=== PATIENT | female | born 1990 | race Caucasian/White ===

== ENCOUNTER 2016-04-03 14:45 | Emergency (ER) ==
[2016-04-03] MEDS ORDERED: TYLENOL PO ONE (15:10)
[2016-04-03 15:29] LABS: MANUAL DIFF NEEDED? NO
--- NOTE | 2016-04-03 15:29 | PROVIDER DOCUMENTATION ---
Addendum entered and electronically signed by Alessandra Jj PA 04/04/16 09 :02: Additional Progress - ADDITIONAL PLAN OF CARE/RESULTS Additional Progress/Plan/Lab Results: Vital Signs Temp Pulse Pulse Pulse Pulse Resp BP 04/03/16 17:34 98.4 F 98 H 18 114/073 04/03/16 14:56 102 H 117 H 88 04/03/16 14:51 98.7 F 105 H 18 107/071 BP BP BP Pulse Ox 04/03/16 17:34 99 04/03/16 14:56 098/070 108/075 106/072 04/03/16 14:51 100 Penicillins Allergy (Mild, Verified 04/03/16 14:55) HIVES Pnv with Ca,No.72/Iron/FA [Pnv Plus Multivit Tab] 1 each PO DAILY #30 tablet 02/21/16 Hydrocodone/APAP 7.5 mg/325 mg [[place]-7.5] 1 each PO Q6H PRN PRN #14 tablet 11/10 Laboratory 04/03/16 04/03/16 04/03/16 15:18 15:18 15:18 WBC 6.55 RBC 3.99 L Hgb 12.2 Hct 35.5 L MCV 89.0 MCH 30.6 MCHC 34.4 RDW Std Deviation 11.9 Plt Count 153 MPV 11.6 H Immature Gran % (Auto) 0.2 Neut % (Auto) 61.8 Lymph % (Auto) 26.7 [place] % (Auto) 7.2 Eos % (Auto) 3.5 Baso % (Auto) 0.6 Immature Gran # (Auto) 0.01 Neut # (Auto) 4.05 Lymph # (Auto) 1.75 [place] # (Auto) 0.47 Eos # (Auto) 0.23 Baso # (Auto) 0.04 Sodium Potassium Chloride Carbon Dioxide Anion Gap BUN Creatinine Estimated GFR/1.73 m2 BUN/Creatinine Ratio Glucose Calculated Osmolality Calcium Total Bilirubin AST ALT Alkaline Phosphatase Total Protein Albumin Globulin Albumin/Globulin Ratio Ser , Semi-Qnt 439.9 ABO/Rh AB POSITIVE RhIG Candidate? NO 04/03/16 15:18 WBC RBC Hgb Hct MCV MCH MCHC RDW Std Deviation Plt Count MPV Immature Gran % (Auto) Neut % (Auto) Lymph % (Auto) [place] % (Auto) Eos % (Auto) Baso % (Auto) Immature Gran # (Auto) Neut # (Auto) Lymph # (Auto) [place] # (Auto) Eos # (Auto) Baso # (Auto) Sodium 137 Potassium 3.6 Chloride 103 Carbon Dioxide 24 L Anion Gap 10 BUN 4 L Creatinine 0.5 Estimated GFR/1.73 m2 > 60 BUN/Creatinine Ratio 8 Glucose 92 Calculated Osmolality 270 Calcium 8.8 Total Bilirubin 0.20 AST 18 ALT 17 Alkaline Phosphatase 90 Total Protein 6.8 Albumin 4.1 Globulin 3.0 Albumin/Globulin Ratio 2.0 Ser , Semi-Qnt ABO/Rh RhIG Candidate? Orders Category Date Time Status US PELVIC NON-PRECISION AGRICULTURE TECHNICIAN COMPLETE [US] Stat Exams 04/03/16 15:10 Draft CBC WITH ELECTRONIC DIFF [HEME] Stat Lab 04/03/16 15:18 Completed COMPREHENSIVE METABOLIC PANEL [CHEM] Stat Lab 04/03/16 15:18 Completed QUANT TEST Stat Lab 04/03/16 15:18 Completed RHOGAM WORKUP [BBK] Stat Lab 04/03/16 15:18 Completed Acetaminophen [Tylenol] Med 04/03/16 15:10 Discontinued 1,000 mg PO NOW ONE Hydrocodone/APAP 10 mg/325 mg [[place]-10] Med 04/03/16 16:50 Discontinued 1 each PO NOW ONE Original Note: HPI-Female /OB/Breast - General Source: reports: patient - History of Present Illness-Female /OB Does patient report she is ?: No Location of complaint: reports: suprapubic Radiation: reports: none Quality of Pain: reports: aching, cramping Severity in ED: reports: moderate Onset/Duration: reports: gradual, 5 days ago Timing: reports: still present, intermittent Context/Activities at Onset: reports: none Vaginal Bleeding Amount: Large/Heavy Related Symptoms: reports: pelvic pain, vaginal bleeding, abdominal pain Sexual intercourse history: reports: Greater Than 2 Months Ago, Single Partner Contraception: reports: none Modifying Factors: improves with: nothing Associated Symptoms: denies: back/neck pain, dizziness, fatigue, fever/chills, nausea, vomiting, weakness Similar Symptoms Previously?: No Recently seen or treated by another doctor?: No - LMP/ History Menstrual Status: currently : 2 Para: 0 : 1 HCG confirmation: home preg test Weeks/Months: 10 <Jono Sinclair - Last Filed: 04/03/16 15:25> <Alessandra Jj - Last Filed: 04/03/16 17:13> - General Chief Complaint: Female Stated Complaint: MISCARRIAGE FOR 5 DAYS Time Seen by Provider: 04/03/16 15:04 Allergies/Adverse Reactions: Patient Allergies Allergy/AdvReac Type Severity Reaction Status Date / Time Penicillins Allergy Mild HIVES Verified 04/03/16 14:55 - History of Present Illness-Female /OB Nature of Presenting Problem: pt is a 25 y/o f that presents with vaginal bleeding and lower abdominal cramping x 5days. she is a AB 1. she reports large amount of copious blood with clots. this morning the bed was covered in blood (Jono Sinclair) Review of Systems - Adult - REVIEW OF SYSTEMS - ADULT Constitutional: denies: chills, fever Eyes: reports: no symptoms reported Ears, Nose, Mouth & Throat: denies: sinus problem, throat pain, throat swelling Cardiovascular: denies: chest pain, palpitations, syncope Respiratory: denies: dyspnea on exertion, shortness of breath, wheezing Gastrointestinal: reports: abdominal pain. denies: diarrhea, nausea, vomiting Genitourinary: reports: other (vaginal bleeding). denies: dysuria, discharge Musculoskeletal: reports: no symptoms reported Integumentary: reports: no symptoms reported Neurological: reports: no symptoms reported Psychiatric: reports: no symptoms reported Endocrine: reports: no symptoms reported Hematologic/Lymphatic: reports: no symptoms reported Allergic/Immunologic: reports: no symptoms reported All Other Systems: Reviewed and Negative <Jono Sinclair - Last Filed: 04/03/16 15:25> Past History - Adult - PAST MEDICAL HISTORY-ADULT Review of Records: reports: Old Records Reviewed, Nursing Assessment Review, Medications Reviewed, Social history reviewed & non-contributory. Major Childhood Illnesses: reports: denies history Cardiovascular: reports: denies history Respiratory: reports: asthma Gastrointestinal: reports: cholelithiasis Obstetrical/Gynecological: reports: ovarian cysts Genitourinary: reports: denies history Musculoskeletal: reports: denies history Neurological: reports: denies history Psychiatric: reports: depression Endocrine/Immune: reports: denies history Other Conditions: reports: denies history - PRIOR SURGERIES/PROCEDURES Surgical/Procedure History: reports: none - PRIOR HOSPITALIZATIONS Prior Hospitalizations: reports: none - IMMUNIZATION STATUS Childhood Immunizations: See Nurse Assessment Flu Vaccine: See Nurse Assessment - FAMILY HISTORY Family History: reviewed, not pertinent <Jono Sinclair - Last Filed: 04/03/16 15:25> Physical Exam-General - PHYSICAL EXAM-ADULT Initial Vital Signs Reviewed: Yes - CONSTITUTIONAL General Appearance: alert, no apparent distress - EYES Eyes: PERRL/EOMI, pink conjunctivae - HEAD, EARS, NOSE, MOUTH & THROAT HENMT: normocephalic/atraumatic, moist mucous membranes, normal ENT inspection, pharynx normal - NECK Neck: full range of motion, normal inspection. negative: lymphadenopathy - RESPIRATORY Respiratory: lungs clear, normal breath sounds, no respiratory distress, no accessory muscle use - CARDIOVASCULAR Cardiovascular: regular rate, rhythm, no edema, no murmur - GASTROINTESTINAL (ABDOMEN) Abdominal Exam: normal bowel sounds, soft, no organomegaly, no pulsatile mass, tenderness (suprapubic) - GENITOURINARY Female Genitalia/Pelvic Exam: active bleeding (in the os). negative: discharge , lesions, tender adnexa, tender uterus - MUSCULOSKELETAL Back Exam: no CVA tenderness, no vertebral tenderness Extremity: normal range of motion, normal inspection - SKIN Integumentary: normal color, warm/dry - NEUROLOGIC Neurologic: grossly normal, no motor/sensory deficits - PSYCHIATRIC Psych/Mental Status: normal mood/affect, normal thought content, normal thought process, oriented x 3 <Jono Sinclair - Last Filed: 04/03/16 15:25> Progress - ULTRASOUND (By Radiology) 1 US Study: Transvaginal Impression: Abnormal (thickened endometrium and trace endometrial free fluid, no gestational sac seen. Serial HCG and Us recommended. per radiology) <Alessandra Jj - Last Filed: 04/03/16 17:13> Departure <Jono Sinclair - Last Filed: 04/03/16 15:25> - Departure Time of Disposition Order: 17:12 Certified Medical Emergency: Emergent <Alessandra Jj - Last Filed: 04/03/16 17:13> - Departure DIAGNOSIS: Spontaneous miscarriage Disposition: HOME 01 Condition: Stable Additional Instructions: Follow up with Dr. Talbert, para machine operator ED Follow Up Instructions: You have been treated by a care provider in the Emergency Department. These instructions are being provided to you so you can have an understanding of how to care for yourself upon discharge. Upon discharge from the Emergency Department, you are responsible for making arrangements for follow-up care by a physician of your choice. Take all prescribed medications as directed. Return to the Emergency Department immediately for any new or worsening symptoms. You may call the Physician Referral phone number at [phone] to obtain a list of Physicians who are taking new patients. Prescriptions: Hydrocodone/APAP 7.5 mg/325 mg [[place]-7.5] 1 each PO Q6H PRN PRN #14 tablet PRN Reason: Pain Referrals: None,PCP [Primary Care Provider] - Justin Talbert MD [STAFF PHYSICIAN] - Attestation - Scribe Verification/Attestation Scribe:: Jono Sinclair Acting as Scribe for:: Alessandra Jj Scribe documention review:: This chart was documented by a scribe and accurately reflects the service the provider performed and the decisions made by the provider. - Physician/ Mid-level Attestation Patient care was provided by Mid-level provider (FRONT OFFICE CLERK/PA):: Yes Mid-level provider:: Alessandra Jj Mid-level documentation review:: The Mid-level provider documentation, treatment plan and medical decision making was reviewed by the physician who agrees with all treatment and medical decision making by the MLP. <Jono Sinclair - Last Filed: 04/03/16 15:25> Physician Attestation
[2016-04-03 15:31] LABS: BASO% 0.6 % (0.0-0.8); EOS# 0.23 X1000 (0.0-0.7); EOS% 3.5 % (0.0-10.0); HEMATOCRIT 35.5 % (37.0-47.0); HEMOGLOBIN 12.2 g/dL (12.0-16.0); IMM GRAN# 0.01 X1000 (0.0-0.04); IMM GRAN% 0.2 % (0.0-0.5); LYMPH# 1.75 X1000 (1.2-3.4); LYMPH% 26.7 % (20.5-51.1); MCH 30.6 PG (27-31); MCHC 34.4 g/dL (33-37); MONO# 0.47 X1000 (0.11-0.59); MONO% 7.2 % (1.7-9.3); MPV 11.6 FL (7.4-10.4); NEUT% 61.8 % (42.2-75.2); PLT 153 X1000 (130-400); RBC 3.99 XMIL (4.2-5.4)
[2016-04-03 15:52] LABS: AGAP 10; ALBUMIN 4.1 g/dL (3.5-5.0); ALKALINE PHOSPHATASE 90 U/L (32-104); BUN 4 mg/dL (8-22); CALCIUM 8.8 mg/dL (8.8-10.2); CHLORIDE 103 mmol/L (98-107); COSMO 270; GOT 18 U/L (10-30); GPT 17 U/L (10-36); POTASSIUM 3.6 mmol/L (3.5-5.1); SODIUM 137 mmol/L (136-145); TCO2 24 mmol/L (25-35); TOTAL PROTEIN 6.8 g/dL (6.3-8.3)
[2016-04-03] MEDS ORDERED: NORCO-10 PO ONE (16:50)
--- NOTE | 2016-04-03 17:15 | Diag Imaging Result Document ---
PROCEDURE NAME: US PELVIC NON-GENERAL MAINTENANCE MECHANIC COMPLETE - 04/03/2016 PELVIC ULTRASOUND WITH TRANSABDOMINAL AND TRANSVAGINAL PROBE: COMPARISON: 11/28/2013. FINDINGS: There appears to be trace endometrial fluid, but no discrete gestational sac can be identified in the endometrial cavity. The endometrium does appear to be thickened measuring up to 2.5 cm in thickness. The uterus is grossly normal in echotexture, otherwise measuring 8.8 x 6.5 x 6.1 cm. Neither the right nor the left ovary could be visualized. At the left side of the pelvis, there is a collection of material that probably represents stool in the colon measuring 3.7 x 4.5 x 3.7 cm. No discrete adnexal mass is identified, otherwise. No pelvic free fluid is identified. IMPRESSION: 1. Trace endometrial fluid, but no definite intrauterine gestational sac is appreciated. Continued surveillance with serial HCG and repeat ultrasound is recommended. 2. Neither ovary could be visualized.
[2016-04-03 17:38] VITALS: BP 114/073
== END 2016-04-03 17:37 | disposition home or self-care (01) ==
LOC: P.ED 14:45
DX: O03.9 Complete or unspecified spontaneous abortion without complication (principal); Z87.42 Personal history of other diseases of the female genital tract; Z87.19 Personal history of other diseases of the digestive system
CPT/HCPCS: 76856; 80053; 84702; 85025; 86900; 86901

== ENCOUNTER 2016-04-04 17:21 | Emergency (ER) ==
[2016-04-04] MEDS ORDERED: MORPHINE IV ONE ×2 (17:47→19:39)
[2016-04-04] MEDS ORDERED: ZOFRAN IV ONE (17:47)
[2016-04-04] MEDS ORDERED: NS 1,000 ML IV ONE ×2 (17:47→20:45)
--- NOTE | 2016-04-04 17:47 | PROVIDER DOCUMENTATION ---
HPI-Female /OB/Breast - General Chief Complaint: Abdominal Pain Stated Complaint: RECHECK Time Seen by Provider: 04/04/16 17:38 Source: reports: patient Allergies/Adverse Reactions: Patient Allergies Allergy/AdvReac Type Severity Reaction Status Date / Time Penicillins Allergy Mild HIVES Verified 04/04/16 18:28 - History of Present Illness-Female /OB Nature of Presenting Problem: 25 y/o WF c/o vaginal bleeding, lightheaded, syncopal episodes x 8 hours. Pt states was 11 weeks, by dates. Pt states LMP December 30, 2015. Bleeding started 02 April 2015, states pain started on 30 March. States bleeding was light, until yesterday- was seen at [place] and told to f/u with OB. Pt states has not gotten insurance to do so. States passing blood clots today and changing pad every 2-5 minutes. States boyfriend caught her during syncopal episode. Suprapubic cramping that is intermittent, 11/03. Denies any N/V/D/C, fever/chills. States . Review of Systems - Adult - REVIEW OF SYSTEMS - ADULT Constitutional: reports: no symptoms reported. denies: chills, fever Eyes: reports: no symptoms reported. denies: blurred vision, double vision Ears, Nose, Mouth & Throat: reports: no symptoms reported. denies: ear pain, nose pain Cardiovascular: reports: no symptoms reported. denies: chest pain, palpitations Respiratory: reports: no symptoms reported. denies: dyspnea on exertion, shortness of breath Gastrointestinal: reports: see HPI, abdominal pain. denies: constipation, diarrhea, nausea, vomiting Genitourinary: reports: see HPI, other. denies: dysuria, frequency Musculoskeletal: reports: no symptoms reported. denies: joint pain, joint swelling Integumentary: reports: no symptoms reported. denies: nail changes, rash Neurological: reports: no symptoms reported. denies: numbness, paresthesia Psychiatric: reports: no symptoms reported Endocrine: reports: no symptoms reported. denies: cold intolerance, heat intolerance Hematologic/Lymphatic: reports: no symptoms reported. denies: easy bruising, prolonged bleeding Allergic/Immunologic: reports: no symptoms reported All Other Systems: Reviewed and Negative Past History - Adult - PAST MEDICAL HISTORY-ADULT Review of Records: reports: Nursing Assessment Review, Medications Reviewed Major Childhood Illnesses: reports: denies history Cardiovascular: reports: denies history Respiratory: reports: asthma Gastrointestinal: reports: cholelithiasis Obstetrical/Gynecological: reports: ovarian cysts Genitourinary: reports: denies history Musculoskeletal: reports: denies history Neurological: reports: denies history Psychiatric: reports: depression Endocrine/Immune: reports: denies history Other Conditions: reports: denies history - PRIOR SURGERIES/PROCEDURES Surgical/Procedure History: reports: none, cholecystectomy - PRIOR HOSPITALIZATIONS Prior Hospitalizations: reports: none - IMMUNIZATION STATUS Childhood Immunizations: See Nurse Assessment Flu Vaccine: See Nurse Assessment - FAMILY HISTORY Family History: reviewed, not pertinent - SOCIAL HISTORY Smoking: cigarettes, less than 1 pack/day Provider spent 3-5 mins advising pt. on dangers of tobacco.: Discussed manners to quit use, and f/u contacts for add'l counseling. Alcohol Use Frequency: never Physical Exam-General - PHYSICAL EXAM-ADULT Initial Vital Signs Reviewed: Yes - CONSTITUTIONAL General Appearance: alert, moderate distress - EYES Eyes: pink conjunctivae - HEAD, EARS, NOSE, MOUTH & THROAT HENMT: normocephalic/atraumatic, moist mucous membranes - NECK Neck: supple, normal inspection - RESPIRATORY Respiratory: lungs clear, normal breath sounds. negative: crackles, rales, rhonchi, stridor, wheezing - CARDIOVASCULAR Cardiovascular: tachycardia. negative: bradycardia - GASTROINTESTINAL (ABDOMEN) Abdominal Exam: normal bowel sounds, soft, tenderness (suprapubic). negative: distended, guarding, rigid, rebound, McBurney's point tenderness, Grimaldo's sign - MUSCULOSKELETAL Extremity: normal gait, normal capillary refill - SKIN Integumentary: normal color, normal turgor, warm/dry - NEUROLOGIC Neurologic: negative: aphasia - PSYCHIATRIC Psych/Mental Status: normal mood/affect, normal thought content, normal thought process, oriented x 3 Progress - PLAN OF CARE/RESULTS Progress/Plan/Lab Results: Laboratory Tests 04/04/16 04/04/16 04/04/16 18:20 18:20 18:20 WBC 9.01 RBC 3.66 L Hgb 11.1 L Hct 33.0 L MCV 90.2 MCH 30.3 MCHC 33.6 RDW Std Deviation 12.2 Plt Count 181 MPV 11.6 H Immature Gran % (Auto) 0.0 Neut % (Auto) 59.0 Lymph % (Auto) 32.6 [place] % (Auto) 6.4 Eos % (Auto) 1.6 Baso % (Auto) 0.4 Immature Gran # (Auto) 0.00 Neut # (Auto) 5.31 Lymph # (Auto) 2.94 [place] # (Auto) 0.58 Eos # (Auto) 0.14 Baso # (Auto) 0.04 Sodium 137 Potassium 3.5 Chloride 100 Carbon Dioxide 22 L Anion Gap 15 BUN 6 L Creatinine 0.6 Estimated GFR/1.73 m2 > 60 BUN/Creatinine Ratio 10 Glucose 98 Calculated Osmolality 271 Calcium 8.4 L Total Bilirubin 0.21 AST 16 ALT 18 Alkaline Phosphatase 83 Total Protein 6.7 Albumin 4.1 Globulin 2.6 Albumin/Globulin Ratio 1.6 Ser , Semi-Qnt 296.2 Urine Source Urine Color Urine Turbidity Urine pH Ur Specific [place] Urine Protein Ur Glucose (Stick) Ur Ketones (Stick) Urine Blood Urine Nitrite Urine Bilirubin Urobilinogen Dipstick Urine Leukocytes Urine WBC (Auto) Urine RBC (Auto) U Epithel Cells (Auto) Urine Bacteria (Auto) Blood Type Antibody Screen 04/04/16 04/04/16 18:20 19:10 WBC RBC Hgb Hct MCV MCH MCHC RDW Std Deviation Plt Count MPV Immature Gran % (Auto) Neut % (Auto) Lymph % (Auto) [place] % (Auto) Eos % (Auto) Baso % (Auto) Immature Gran # (Auto) Neut # (Auto) Lymph # (Auto) [place] # (Auto) Eos # (Auto) Baso # (Auto) Sodium Potassium Chloride Carbon Dioxide Anion Gap BUN Creatinine Estimated GFR/1.73 m2 BUN/Creatinine Ratio Glucose Calculated Osmolality Calcium Total Bilirubin AST ALT Alkaline Phosphatase Total Protein Albumin Globulin Albumin/Globulin Ratio Ser , Semi-Qnt Urine Source CLEAN CATCH Urine Color RED Urine Turbidity TURBID Urine pH 5.5 Ur Specific [place] 1.024 Urine Protein 200 A Ur Glucose (Stick) NEGATIVE Ur Ketones (Stick) NEGATIVE Urine Blood LARGE A Urine Nitrite NEGATIVE Urine Bilirubin NEGATIVE Urobilinogen Dipstick NORMAL Urine Leukocytes SMALL A Urine WBC (Auto) <10 Urine RBC (Auto) TNTC A U Epithel Cells (Auto) <10 Urine Bacteria (Auto) NEGATIVE Blood Type AB POSITIVE Antibody Screen NEGATIVE Orders Category Date Time Status NPO Diet 04/04/16 17:38 Active US PELVIC NON-DEPUTY CORONER INVESTIGATOR COMPLETE [US] Stat Exams 04/04/16 17:40 Taken CBC WITH ELECTRONIC DIFF [HEME] Stat Lab 04/04/16 18:20 Completed COMPREHENSIVE METABOLIC PANEL [CHEM] Stat Lab 04/04/16 18:20 Completed QUANT TEST Stat Lab 04/04/16 18:20 Completed TYPE & SCREEN [BBK] Stat Lab 04/04/16 18:20 Completed URINALYSIS W/POSS RFLX CULT [URINALYSIS] Stat Lab 04/04/16 19:10 Completed URINE CULTURE [RM] Routine Lab 04/04/16 19:38 Received 0.9% Sodium Chloride Inj [Ns] 1,000 ml Med 04/04/16 20:35 Discontinued .ROUTE As Directed 0.9% Sodium Chloride Inj [Ns] 1,000 ml Med 04/04/16 17:47 Discontinued IV 999 mls/hr 0.9% Sodium Chloride Inj [Ns] 1,000 ml Med 04/04/16 20:45 Active IV 999 mls/hr Hydrocodone/APAP 7.5 mg/325 mg [[place]-7.5] Med 04/04/16 21:27 Discontinued 2 each PO NOW ONE Morphine Med 04/04/16 17:47 Discontinued 2 mg IV NOW ONE Morphine Med 04/04/16 19:39 Discontinued 2 mg IV NOW ONE Ondansetron [Zofran] Med 04/04/16 17:47 Discontinued 4 mg IV NOW ONE Vital Signs Temp Pulse Resp BP Pulse Ox 04/04/16 21:00 77 15 96/54 98 04/04/16 20:06 97.9 F 65 20 79/46 99 04/04/16 17:26 98.0 F 99 H 18 94/59 100 Penicillins Allergy (Mild, Verified 04/04/16 18:28) HIVES Pnv with Ca,No.72/Iron/FA [Pnv Plus Multivit Tab] 1 each PO DAILY #30 tablet 02/21/16 Hydrocodone/APAP 7.5 mg/325 mg [[place]-7.5] 1 each PO Q6H PRN PRN #14 tablet 11/10 Dietary Diet NPO Start MonApr 04 1737 I&O 04/03/16 04/04/16 04/05/16 06:59 06:59 06:59 Output Total 40 Balance -40 Laboratory 04/04/16 04/04/16 04/04/16 19:10 18:20 18:20 WBC RBC Hgb Hct MCV MCH MCHC RDW Std Deviation Plt Count MPV Immature Gran % (Auto) Neut % (Auto) Lymph % (Auto) [place] % (Auto) Eos % (Auto) Baso % (Auto) Immature Gran # (Auto) Neut # (Auto) Lymph # (Auto) [place] # (Auto) Eos # (Auto) Baso # (Auto) Sodium Potassium Chloride Carbon Dioxide Anion Gap BUN Creatinine Estimated GFR/1.73 m2 BUN/Creatinine Ratio Glucose Calculated Osmolality Calcium Total Bilirubin AST ALT Alkaline Phosphatase Total Protein Albumin Globulin Albumin/Globulin Ratio Ser , Semi-Qnt 296.2 Urine Source CLEAN CATCH Urine Color RED Urine Turbidity TURBID Urine pH 5.5 Ur Specific [place] 1.024 Urine Protein 200 A Ur Glucose (Stick) NEGATIVE Ur Ketones (Stick) NEGATIVE Urine Blood LARGE A Urine Nitrite NEGATIVE Urine Bilirubin NEGATIVE Urobilinogen Dipstick NORMAL Urine Leukocytes SMALL A Urine WBC (Auto) <10 Urine RBC (Auto) TNTC A U Epithel Cells (Auto) <10 Urine Bacteria (Auto) NEGATIVE Blood Type AB POSITIVE Antibody Screen NEGATIVE 04/04/16 04/04/16 18:20 18:20 WBC 9.01 RBC 3.66 L Hgb 11.1 L Hct 33.0 L MCV 90.2 MCH 30.3 MCHC 33.6 RDW Std Deviation 12.2 Plt Count 181 MPV 11.6 H Immature Gran % (Auto) 0.0 Neut % (Auto) 59.0 Lymph % (Auto) 32.6 [place] % (Auto) 6.4 Eos % (Auto) 1.6 Baso % (Auto) 0.4 Immature Gran # (Auto) 0.00 Neut # (Auto) 5.31 Lymph # (Auto) 2.94 [place] # (Auto) 0.58 Eos # (Auto) 0.14 Baso # (Auto) 0.04 Sodium 137 Potassium 3.5 Chloride 100 Carbon Dioxide 22 L Anion Gap 15 BUN 6 L Creatinine 0.6 Estimated GFR/1.73 m2 > 60 BUN/Creatinine Ratio 10 Glucose 98 Calculated Osmolality 271 Calcium 8.4 L Total Bilirubin 0.21 AST 16 ALT 18 Alkaline Phosphatase 83 Total Protein 6.7 Albumin 4.1 Globulin 2.6 Albumin/Globulin Ratio 1.6 Ser , Semi-Qnt Urine Source Urine Color Urine Turbidity Urine pH Ur Specific [place] Urine Protein Ur Glucose (Stick) Ur Ketones (Stick) Urine Blood Urine Nitrite Urine Bilirubin Urobilinogen Dipstick Urine Leukocytes Urine WBC (Auto) Urine RBC (Auto) U Epithel Cells (Auto) Urine Bacteria (Auto) Blood Type Antibody Screen Discussed pt with Dr. Fernandez; he agreed with d/c plan. Discussed f/u with OB with the pt. - ULTRASOUND (By Radiology) 1 US Study: Pelvic Impression: See EMR Report (No change from yesterday, per Dr. Mcnair) Departure - Departure Time of Disposition Order: 21:26 DIAGNOSIS: Spontaneous miscarriage, Vaginal bleeding Disposition: HOME 01 Certified Medical Emergency: Emergent Condition: Stable Additional Instructions: Follow up with OB in the morning for further management. Continue taking medications as directed. ED Follow Up Instructions: You have been treated by a care provider in the Emergency Department. These instructions are being provided to you so you can have an understanding of how to care for yourself upon discharge. Upon discharge from the Emergency Department, you are responsible for making arrangements for follow-up care by a physician of your choice. Take all prescribed medications as directed. Return to the Emergency Department immediately for any new or worsening symptoms. You may call the Physician Referral phone number at [phone] to obtain a list of Physicians who are taking new patients. Attestation - Physician/ Mid-level Attestation Patient care was provided by Mid-level provider (BLENDER CONVEYOR OPERATOR/PA):: Yes Mid-level provider:: Radhika Spain Mid-level documentation review:: The Mid-level provider documentation, treatment plan and medical decision making was reviewed by the physician who agrees with all treatment and medical decision making by the MLP.
[2016-04-04 18:31] LABS: MANUAL DIFF NEEDED? NO
[2016-04-04 18:37] LABS: BASO% 0.4 % (0.0-0.8); EOS# 0.14 X1000 (0.0-0.7); EOS% 1.6 % (0.0-10.0); HEMOGLOBIN 11.1 g/dL (12.0-16.0); LYMPH# 2.94 X1000 (1.2-3.4); LYMPH% 32.6 % (20.5-51.1); MCH 30.3 PG (27-31); MCHC 33.6 g/dL (33-37); MCV 90.2 FL (81-99); MONO# 0.58 X1000 (0.11-0.59); MONO% 6.4 % (1.7-9.3); MPV 11.6 FL (7.4-10.4); PLT 181 X1000 (130-400); RBC 3.66 XMIL (4.2-5.4)
[2016-04-04 18:55] LABS: AGAP 15; ALBUMIN 4.1 g/dL (3.5-5.0); ALKALINE PHOSPHATASE 83 U/L (32-104); BUN 6 mg/dL (8-22); CALCIUM 8.4 mg/dL (8.8-10.2); CHLORIDE 100 mmol/L (98-107); COSMO 271; GOT 16 U/L (10-30); GPT 18 U/L (10-36); POTASSIUM 3.5 mmol/L (3.5-5.1); SODIUM 137 mmol/L (136-145); TCO2 22 mmol/L (25-35); TOTAL BILIRUBIN 0.21 mg/dL (0.20-1.00); TOTAL PROTEIN 6.7 g/dL (6.3-8.3)
[2016-04-04 19:24] LABS: URINE MICRO REVIEW NEEDED? NO; URINE SOURCE CLEAN CATCH
[2016-04-04 19:33] LABS: UR EPITHELIAL CELLS <10 /HPF (<10); URINE BACTERIA NEGATIVE /HPF; URINE WBC <10 /HPF (<10)
[2016-04-04 19:35] LABS: BILIRUBIN URINE NEGATIVE (NEGATIVE); BLOOD URINE LARGE (NEGATIVE); COLOR RED; GLUCOSE URINE NEGATIVE (NEGATIVE); LEUKOCYTES URINE SMALL (NEGATIVE); NITRITE URINE NEGATIVE (NEGATIVE); PH URINE 5.5; PROTEIN URINE 200 mg/dL (NEGATIVE); SP GRAVITY URINE 1.024; TURBIDITY URINE TURBID (CLEAR); URINE CULTURE NEEDED? YES; UROBILINOGEN URINE NORMAL (NORMAL)
[2016-04-04 19:38] LABS: URINE RBC TNTC /HPF (<10)
[2016-04-04] MEDS ORDERED: NS 1,000 ML ONE (20:35)
[2016-04-04] MEDS ORDERED: NORCO-7.5 PO ONE (21:27)
[2016-04-04 21:51] VITALS: BP 105/54
--- NOTE | 2016-04-05 08:16 | Diag Imaging Result Document ---
PROCEDURE NAME: US PELVIC NON-MORTGAGE LOAN CLOSER COMPLETE - 04/04/2016 PELVIC ULTRASOUND: COMPARISON: 04/03/2016. FINDINGS: No intrauterine gestational sac can be identified. There is an endometrial thickening similar to the previous study measuring up to 2 cm in thickness. The uterus is essentially stable as compared to the recent prior study. There is trace fluid in the endometrial cavity that may represent blood products. Neither the right nor the left ovary can be identified. No definite adnexal mass is identified. There is trace free fluid in the pelvis. IMPRESSION: Trace fluid in the endometrial cavity that may represent blood products, but essentially stable pelvic ultrasound with endometrial thickening and no gestational sac identified.
== END 2016-04-04 22:11 | disposition home or self-care (01) ==
LOC: ED 17:21
DX: N93.9 Abnormal uterine and vaginal bleeding, unspecified (principal); R42 Dizziness and giddiness; R55 Syncope and collapse; R10.9 Unspecified abdominal pain; Z87.42 Personal history of other diseases of the female genital tract; Z87.19 Personal history of other diseases of the digestive system; F17.210 Nicotine dependence, cigarettes, uncomplicated; Z71.6 Tobacco abuse counseling; R00.0 Tachycardia, unspecified; R10.30 Lower abdominal pain, unspecified
CPT/HCPCS: 76856; 80053; 81001; 84702; 85025; 86850; 86900; 86901; 87088; 96361; 96374; 96376; J2270; J2405; J7030